=== PATIENT | female | born 1965 | race Caucasian/White ===

== ENCOUNTER → 2016-07-20 | Outpatient (REF) | payer OTHER ==
[~2016-07-20] MED LIST: COLA100C3 PO; MELO15TA4 PO; NEUR300C PO; PERCOCET PO; TRAM50TA2 PO; TYLE325T5 PO
[2016-07-20 15:32] LABS: BLOOD UREA NITROGEN 11 MG/DL (7-18); CREATININE FOR GFR 0.71 MG/DL (0.55-1.02); GLOMERULAR FILTRATION RATE > 60.0 (>58)
== END ==
LOC: M LABDRAW1 14:56
PROVIDERS: ATTEND Physical Medicine & Rehabilitation
DX: M48.07 Spinal stenosis, lumbosacral region (principal)

== ENCOUNTER → 2017-03-15 | Outpatient (REF) | payer OTHER ==
[2017-03-15 16:36] LABS: AMPHETAMINES URINE REFLEX NEGATIVE (NEGATIVE); BARBITURATES URINE REFLEX NEGATIVE (NEGATIVE); BENZODIAZEPINES URINE REFLEX NEGATIVE (NEGATIVE); CANNABINOIDS URINE REFLEX NEGATIVE (NEGATIVE); COCAINE METABOLITE URINE REFLE NEGATIVE (NEGATIVE); METHADONE URINE REFLEX NEGATIVE (NEGATIVE); OPIATES URINE REFLEX NEGATIVE (NEGATIVE); PHENCYCLIDINE URINE REFLEX NEGATIVE (NEGATIVE)
== END ==
LOC: M LAB REF 15:51
DX: M47.897 Other spondylosis, lumbosacral region (principal)

== ENCOUNTER → 2018-12-08 | Outpatient (REF) | payer OTHER ==
[~2018-12-08] MED LIST changes: -COLA100C3 PO; +COLA100C5 PO; +MELO15TA28 PO; -MELO15TA4 PO; +TIZA4TAB4; +TRAM50TA2
[2018-12-08 12:49] LABS: BASO % 0.4 % (0.0-1.0); EOS # 0.3 10^3/uL (0.0-0.5); EOS % 2.8 % (0.0-3.0); HEMATOCRIT 46.2 % (36.0-47.0); HEMOGLOBIN 14.8 g/dl (12.0-15.5); LYMPH # 2.8 10^3/uL (1.5-5.0); LYMPH % 29.3 % (24.0-44.0); MEAN CORPUSCULAR HEMOGLOBIN 31.1 pg (27.0-33.0); MEAN CORPUSCULAR VOLUME 97.1 fl (80.0-96.0); MONO # 0.7 10^3/uL (0.0-0.8); MONO % 7.8 % (0.0-5.0); NEUTROPHILS # 5.6 10^3/uL (1.5-8.5); NEUTROPHILS % 59.4 % (36.0-66.0); PLATELET COUNT, AUTOMATED 385 10^3/uL (150-450); RED BLOOD COUNT 4.76 10^6/uL (4.00-5.40); WHITE BLOOD COUNT 9.5 10^3/uL (4.0-10.0)
[2018-12-08 13:08] LABS: ALBUMIN 4.1 GM/DL (3.2-5.2); ALT/SGPT 61 U/L (12-78); BILIRUBIN,TOTAL 0.4 MG/DL (0.2-1.0); BLOOD UREA NITROGEN 14 MG/DL (7-18); CALCIUM LEVEL 9.6 MG/DL (8.5-10.1); CARBON DIOXIDE LEVEL 24 MEQ/L (21-32); CHLORIDE LEVEL 108 MEQ/L (98-107); CHOLESTEROL LEVEL 247 MG/DL (<200); CHOLESTEROL RISK RATIO 3.859 (<5); CREATININE FOR GFR 0.74 MG/DL (0.55-1.30); GLOMERULAR FILTRATION RATE > 60.0 (>51); GLUCOSE, FASTING 85 MG/DL (70-100); HDL CHOLESTEROL 64 MG/DL (>40); LDL CHOLESTEROL 143 MG/DL (<100); NON-HDL-C 183 MG/DL; POTASSIUM SERUM 4.8 MEQ/L (3.5-5.1); SODIUM LEVEL 140 MEQ/L (136-145); TOTAL PROTEIN 7.5 GM/DL (6.4-8.2); TRIGLYCERIDES LEVEL 201 MG/DL (<150)
== END ==
LOC: M SFHCADAM 08:29
PROVIDERS: ATTEND Family Medicine
DX: Z00.00 Encounter for general adult medical examination without abnormal findings (principal)

== ENCOUNTER 2018-12-26 11:50 | Day surgery (SDC) | payer OTHER ==
[~2018-12-26] VITALS: Ht 172.7 cm; Wt 76.7 kg
[~2018-12-26 11:50] MED LIST changes: +LR 1,000 ML IV ONE
[2018-12-26 12:33] LABS: HEMATOCRIT 46.4 % (36.0-47.0); HEMOGLOBIN 15.3 g/dl (12.0-15.5); MEAN CORPUSCULAR HEMOGLOBIN 31.1 pg (27.0-33.0); MEAN CORPUSCULAR VOLUME 94.3 fl (80.0-96.0); PLATELET COUNT, AUTOMATED 295 10^3/uL (150-450); RED BLOOD COUNT 4.92 10^6/uL (4.00-5.40); WHITE BLOOD COUNT 8.3 10^3/uL (4.0-10.0)
--- NOTE | 2018-12-26 13:11 | ECGEPIP ---
[facility] Test Date: 2018-12-26 Pat Name: YUDITH HEIN Department: Room: - Gender: Female Director Oracle Database: UYEN : [id number] Requested By: DAPHNE KAISER Order Number: [id number] Reading MD: Syl Ayers Measurements Intervals [place] Rate: 83 P: 56 NV: 135 QRS: 58 QRSD: 93 T: 55 QT: 376 QTc: 443 Interpretive Statements SINUS RHYTHM NO PRIOR NONSPECIFIC ST AMN Electronically Signed on 12-26-2018 13:10:49 EST by Syl Ayers
[2018-12-26] MEDS ORDERED: PROPOFOL 200 MG/20 ML VIAL As Ordered ONE (13:36)
[2018-12-26] MEDS ORDERED: MIDAZOLAM INJ 2 MG/2 ML VIAL (J2250) As Ordered ONE (13:36)
[2018-12-26] MEDS ORDERED: LIDOCAINE 2% INJ 100 MG/5 ML SDV (FOR ANES.) As Ordered ONE (13:36)
[2018-12-26] MEDS ORDERED: fentaNYL 100 MCG/2 ML INJECTION (J3010) As Ordered ONE (13:36)
[2018-12-26] MEDS ORDERED: dexameTHASONE 4 MG/ML 1ML VIAL (J1100) As Ordered ONE (13:36)
[2018-12-26] MEDS ORDERED: ONDANSETRON 4MG/2ML VIAL (J2405) As Ordered ONE (13:36)
[2018-12-26] MEDS ORDERED: KETOROLAC 60 MG/2 ML VIAL (J1885) As Ordered ONE (13:36)
[2018-12-26] MEDS ORDERED: SILVER NITRATE APPLICATOR As Ordered ONE (15:15)
[2018-12-26] MEDS ORDERED: LR 1,000 ML IV SCH (15:45)
[2018-12-26] MEDS ORDERED: fentaNYL 100 MCG/2 ML INJECTION (J3010) IV PRN (15:45)
[2018-12-26] MEDS ORDERED: ONDANSETRON 4MG/2ML VIAL (J2405) IV PRN (15:45)
[2018-12-26] MEDS ORDERED: PERCOCET 5MG/325MG TAB PO PRN ×2 (15:45→16:00)
--- NOTE | 2018-12-26 15:48 | RO ---
DATE OF PROCEDURE: 12/26/2018 PREOPERATIVE DIAGNOSIS: Post menopausal bleeding. POSTOPERATIVE DIAGNOSIS: Post menopausal bleeding. PROCEDURE PERFORMED: Hysteroscopy with dilation and curettage. SURGEON: Ngozi Deluca MD BENZENE WASHER: None. ANESTHESIA: General via laryngeal mask airway. ESTIMATED BLOOD LOSS: 5 mL. IV FLUIDS: 500 mL. URINE OUTPUT: Was not obtained. OPERATIVE FINDINGS: Thickened endometrial, bilateral ostia are not visualized. The uterus sounded to 9 cm. Excessive amounts of tissue obtained on curettage. SPECIMENS: Endometrial curettings. PREOPERATIVE ANTIBIOTICS: None. DESCRIPTION OF OPERATION: After informed consent was obtained and written consent reviewed, the patient brought the operating room where she was placed under general anesthesia. She was then placed lithotomy position and was prepped and draped in a normal sterile fashion. Time out in the operating room was then performed identifying the patient, procedure to be performed, as well as drug allergies. A bivalve speculum then placed revealing the cervix anterior lip, surface was grasped with a single-tooth tenaculum. Uterus was then sounded to 9 cm. The uterus then sequentially dilated using Patrick dilators. The hysteroscope was then advanced through the cervical os and the endometrial cavity was inspected showing excessive amounts endometrium extremely thick, bilateral ostias were not visualized. Hysteroscope was then removed. Curette was then advanced in the cervical os to the level of the fundus and the uterus was curetted in a 360 degree fashion and large amounts of tissue obtained. Specimen was then collected and sent to pathology. Single-tooth tenaculum then removed. Tenaculum sites were noted to be hemostatic. Speculum was then removed. The patient was then taken out of lithotomy position, was awakened anesthesia, taken recovery in stable condition.
[2018-12-26 16:30] VITALS: BP 147/78
[2018-12-26] MEDS ORDERED: KETOROLAC 30 MG/ML VIAL (J1885) IV SCH (21:00)
== END 2018-12-26 16:45 | disposition home or self-care (01) ==
LOC: M SDC 11:50
PROVIDERS: ATTEND Obstetrics & Gynecology
DX: C54.1 Malignant neoplasm of endometrium (principal); Z79.899 Other long term (current) drug therapy; F17.218 Nicotine dependence, cigarettes, with other nicotine-induced disorders
CPT/HCPCS: 36415; 58558; 81025; 85027; 86850; 86900; 86901; 88305; 93005; J1100; J1885; J2250; J2405; J3010

== ENCOUNTER → 2019-01-15 | Outpatient (CLI) | payer OTHER ==
[~2019-01-15] MED LIST changes: -LR 1,000 ML IV ONE
--- NOTE | 2019-01-15 10:23 | REP ---
BILATERAL MAMMOGRAM WITH 3D TOMOSYNTHESIS: No family history of breast cancer. [facility] lifetime risk of breast cancer 7.5%. Comparison mammogram 07/10/2002. MLO and CC views of the breast performed with 3D tomosynthesis. There is moderate fibroglandular tissue bilaterally. There is asymmetric increased density associated with tiny calcifications in the upper inner left breast. This is in the mid third of the left breast. I see no other evidence of mass or clustered microcalcifications. IMPRESSION: ACR 0 incomplete. There appears to be subtle asymmetric ill-defined fibroglandular density in the upper inner left breast associated with tiny calcifications at that location. Recommend spot compression magnification views to further evaluate. ACR 0 incomplete. This mammogram was interpreted with the aid of an FDA-approved computer-aided detection system. A. Negative x-ray reports should not delay biopsy if a dominant or clinically suspicious mass is present. B. Four to eight percent of cancers are not identified by x-ray. C. Adenosis and dense breasts may obscure an underlying neoplasm. The patient states she has not had a clinical breast exam in over a year. The patient letter being requested is M0. Electronically Signed by Vipin Mcgowan MD 01/15/2019 12:48 P
--- NOTE | 2019-01-15 10:31 | REP ---
Clinical: Endometrial malignancy. Technique: Transvaginal examination for better evaluation of the endometrium and adnexa with color Doppler evaluation of the ovaries. Findings: Anteverted uterus measures 8.9 x 4.7 x 6.4 cm and a 1 cm left intramural partially calcified fibroid is identified. The endometrial complex appears avascular and measures 26 mm thickness. Bilateral ovaries are normal in appearance and vascularity without evidence for torsion. Right ovary measures 2.4 x 1.7 x 2.0 cm ; R I = 0.57 . Left ovary measures 3.5 x 1.6 x 1.6 cm ; R I = 0.60 . No pelvic fluid or adnexal mass lesion . Impression: 1. Heterogeneous thickened endometrium. 2. 1 cm intramural fibroid. 3. Normal bilateral ovaries. 4. No free fluid. Electronically Signed by Gal Denson MD 01/15/2019 10:23 A
== END ==
LOC: M RAD 09:05
PROVIDERS: ATTEND Obstetrics & Gynecology
DX: C54.1 Malignant neoplasm of endometrium (principal); R92.2 Inconclusive mammogram; N95.0 Postmenopausal bleeding

== ENCOUNTER → 2019-04-03 | Outpatient (CLI) | payer OTHER ==
[2019-04-03 15:33] LABS: BASO % 0.4 % (0.0-1.0); EOS # 0.2 10^3/uL (0.0-0.5); HEMOGLOBIN 13.6 g/dl (12.0-15.5); LYMPH # 2.7 10^3/uL (1.5-5.0); LYMPH % 35.7 % (24.0-44.0); MEAN CORPUSCULAR HEMOGLOBIN 30.1 pg (27.0-33.0); MEAN CORPUSCULAR HGB CONC 33.2 g/dl (32.0-36.5); MEAN CORPUSCULAR VOLUME 90.7 fl (80.0-96.0); MONO # 0.6 10^3/uL (0.0-0.8); MONO % 7.2 % (0.0-5.0); NEUTROPHILS # 4.2 10^3/uL (1.5-8.5); NEUTROPHILS % 54.4 % (36.0-66.0); PLATELET COUNT, AUTOMATED 383 10^3/uL (150-450); RED BLOOD COUNT 4.52 10^6/uL (4.00-5.40); WHITE BLOOD COUNT 7.6 10^3/uL (4.0-10.0)
[2019-04-03 15:54] LABS: ALBUMIN 4.5 GM/DL (3.2-5.2); ALT/SGPT 50 U/L (12-78); BILIRUBIN,TOTAL 0.5 MG/DL (0.2-1.0); BLOOD UREA NITROGEN 17 MG/DL (7-18); CALCIUM LEVEL 9.3 MG/DL (8.5-10.1); CARBON DIOXIDE LEVEL 29 MEQ/L (21-32); CHLORIDE LEVEL 103 MEQ/L (98-107); CREATININE FOR GFR 0.93 MG/DL (0.55-1.30); GLOMERULAR FILTRATION RATE > 60.0 (>51); GLUCOSE, FASTING 87 MG/DL (70-100); SODIUM LEVEL 137 MEQ/L (136-145); TOTAL PROTEIN 8.1 GM/DL (6.4-8.2)
== END ==
LOC: M LAB 14:09
PROVIDERS: ATTEND Family Medicine
DX: Z01.818 Encounter for other preprocedural examination (principal)

== ENCOUNTER → 2019-06-13 | Outpatient (CLI) | payer OTHER ==
[~2019-06-13] MED LIST changes: +ACET-683 PO; +APPL300T4 PO; +MULTCAP PO; +SIMV20TA22 PO; -TIZA4TAB4; +TIZA4TAB4 PO; +ULTR50TA8 PO; +VITA100T59 PO; +[UNRECOGNIZED DRUG - REMARK] PO
== END ==
LOC: M LABSMTC 09:36
PROVIDERS: ATTEND Anesthesiology
DX: Z01.818 Encounter for other preprocedural examination (principal); Z11.59 Encounter for screening for other viral diseases

== ENCOUNTER 2019-06-16 06:27 | Day surgery (SDC) | payer OTHER ==
[~2019-06-16] VITALS: Ht 170.2 cm; Wt 82.6 kg
[~2019-06-16 06:27] MED LIST changes: +HEPARIN SOD (PORCINE) 5000UNITS/ML VIAL (J1644 PER 1000UNITS) SQ ONE; +LR 1,000 ML IV ONE; -ULTR50TA8 PO; +ceFAZolin SOD 2 GM in IV 1 EA IV ONE
[2019-06-16] MEDS ORDERED: fentaNYL 100 MCG/2 ML INJECTION (J3010) As Ordered ONE (06:49)
[2019-06-16] MEDS ORDERED: MIDAZOLAM INJ 2MG/2ML VIAL (J2250 PER 1MG) As Ordered ONE (06:49)
[2019-06-16] MEDS ORDERED: PHENYLephrine HCL 500 MCG/5 ML (100MCG/ML) SYRINGE (J2370) As Ordered ONE (06:50)
[2019-06-16] MEDS ORDERED: ePHEDrine SULFATE 25 MG/5 ML(5MG/ML) SYRINGE As Ordered ONE (06:50)
[2019-06-16] MEDS ORDERED: propofoL 200 MG/20 ML VIAL As Ordered ONE (06:50)
[2019-06-16] MEDS ORDERED: SUGAMMADEX SODIUM 500 MG/5 ML VIAL (BRIDION) As Ordered ONE (06:50)
[2019-06-16] MEDS ORDERED: LIDOCAINE 2% 100MG/5ML SDV (FOR ANES.) As Ordered ONE (06:50)
[2019-06-16] MEDS ORDERED: dexameTHASONE 4 MG/ML 1ML VIAL (J1100 PER 1MG) As Ordered ONE (06:50)
[2019-06-16] MEDS ORDERED: ROCURONIUM BROMIDE 50 MG/5 ML VIAL As Ordered ONE (06:50)
[2019-06-16] MEDS ORDERED: ONDANSETRON 4MG/2ML VIAL As Ordered ONE (06:50)
[2019-06-16] MEDS ORDERED: BUPIVACAINE HCL 0.25% 10ML VIAL As Ordered ONE (07:09)
[2019-06-16] MEDS ORDERED: LIDOCAINE 1% MDV 20ML VIAL As Ordered ONE ×2 (07:09→07:34)
[2019-06-16] MEDS ORDERED: ACETAMINOPHEN 1000MG 100ML IV BTL (OFIRMEV) (J0131 PER 10MG) As Ordered ONE (07:43)
--- NOTE | 2019-06-16 09:18 | REP ---
FOCUSED LEFT BREAST SONOGRAPHY: HISTORY: Sonographic guidance for wire localization. FINDINGS: Sonographic guidance is provided to Dr. Mondragon who performed an ultrasound-guided wire localization procedure. Electronically Signed by Paul Carrera MD 06/16/2019 12:02 P
[2019-06-16] MEDS ORDERED: ULTR50TA8 PO (09:19)
[2019-06-16] MEDS ORDERED: fentaNYL 100 MCG/2 ML INJECTION (J3010) IV PRN (09:30)
[2019-06-16] MEDS ORDERED: ONDANSETRON 4MG/2ML VIAL IV PRN (09:30)
[2019-06-16] MEDS ORDERED: METOCLOPRAMIDE INJ 10MG/2ML VIAL (J2765 PER 1) IV PRN (09:30)
[2019-06-16] MEDS ORDERED: LR 1,000 ML IV SCH (09:30)
[2019-06-16] MEDS ORDERED: KETOROLAC 30 MG/ML 1ML VIAL IV PRN (09:30)
[2019-06-16] MEDS: PERCOCET 5MG/325MG TAB PO PRN ×2 (09:33→10:03)
[2019-06-16] MEDS: MORPHINE 2 MG/ML 1ML VIAL (J2270) IV PRN ×2 (09:39→09:46)
[2019-06-16 10:30] VITALS: BP 129/74
--- NOTE | 2019-06-16 13:38 | REP ---
SPECIMEN RADIOGRAPHY, LEFT BREAST. HISTORY: Excisional biopsy left breast with intraoperative needle localization. COMPARISON MAMMOGRAPHY: March 04, 2019 FINDINGS: Specimen radiography demonstrates scattered microcalcifications adjacent to the localizer wire. The previously placed needle biopsy marker clip is seen within the specimen. Electronically Signed by Paul Carrera MD 06/16/2019 04:40 P
--- NOTE | 2019-06-16 17:56 | ROOPDOC ---
[facility] Report Of Operation Report of Operation DATE OF PROCEDURE: 06/16/19 PREPROCEDURE DIAGNOSES: Left intraductal papilloma POSTPROCEDURE DIAGNOSES: Left intraductal papilloma. PROCEDURE: Left breast excisional biopsy. SURGEON: Lauren Navarro INTERFACE ANALYST: ANESTHESIA: Gen. anesthetic was used. ESTIMATED BLOOD LOSS: Approximately 5 mL. COMPLICATIONS: None REMARKS: wire and the clip are present in the left breast excisional biopsy specimen. Some calcifications are also seen. DESCRIPTION OF PROCEDURE: INDICATIONS: Ms. Nieves is a 53-year-old woman who was found to have a left suspicious calcifications on screening mammogram. This was evaluated with Left breast stereotactic biopsy. The pathology came back as intraductal papilloma. Hydromark clip was placed. Left breast excisional biopsy was offered to the patient to remove the papilloma. She was medically cleared for surgery by her primary care doctor. Risks and possible complications of surgical procedure including bleeding, infection and injury to surrounding structures were explained to the patient and she wished to proceed. Consent was signed. My initials were placed on the operative site. Subcutaneous injection of 5000 units of heparin was done in Pr eop. DETAILS: Patient was taken to the operating room and placed on the operating room table. A sign in was called stating patients name, date of and the procedure to be done. Preoperative antibiotics were infused. Smooth induction of general an esthesia was done. Patients hands were extended on arm rests. Care was taken not to over extend the arms. Procedure was started with left breast intraop wire localization. Appropriate time out was done and patients name, date of , and the procedure to be done were confirmed. Left breast was cleaned by me. Intraoperative ultrasound was used again to confirm location of the Hydromark clip. Location of the clip was marked on the skin as well. 21 G Kopans Breast Lesion Localization Needle was used to place 25 cm wire through the lesion. The wire was placed through the clip and the end of the wire was passed a centimeter deep. The images were captured confirming adequate placement of the localizing wire. Closing Coordinator assisted with the wire placement. Next, patients left breast and axilla were prepped and draped in the usual fashion. Care was taken not to displace the wire. Appropriate time out was done again prior second part of the procedure. Patients name, date of , and the procedure to be done were confirmed. Next, local anesthetic using 1% lidocaine and 0.25 % Marcaine 50/50 mix was injected at the site of planned periareolar incision. The incision was made with the scalpel. Subcutaneous skin flaps were raised and the guide wire was carefully pulled into the wound. Dissection was carries along the wire until the previously marked on the skin area of target lesion location was encountered. At this point, wider excision of the tissue surrounding the wire was done. The Hydromark clip was identified in the tissue with intraoperative hockey stick ultrasound probe. The end of the wire was identified with palpation. The excisional biopsy specimen was carefully removed from the breast keeping its proper orientation and moved to the back table where margins were marked with the surgical inking kit following the standard colors recommendations. Specimen was then placed on the grid and placed in [employer] Specimen Imaging System. The image revealed the wire and the Hydromark in the specimen. The specimen was labeled with patients name and left excisional biopsy and sent to pathology. Next, the wound was irrigated thoroughly and adequate hemostasis was assured. Additional local anesthetic was injected into surrounding tissues. space was approximated with 3-0 Vicryl. The dermis was closed with 3-0 Monocryl and skin was closed with 4-0 Monocryl. Surgical glue was placed over the incision. Patient emerged from the anesthesia without any problems. Fluffs were placed over the operative site and patients chest was wrapped snuggly in the MATTHIEU wrap. Sponge and instrument counts were done and were correct. Patient tolerated procedure well and was taken to recovery unit in stable condition. RUSSELL WELCH DO June 16, 2019 17:56
== END 2019-06-16 11:00 | disposition home or self-care (01) ==
LOC: M SDC 06:27
PROVIDERS: ATTEND Surgery
DX: N60.22 Fibroadenosis of left breast (principal); D24.2 Benign neoplasm of left breast; K21.9 Gastro-esophageal reflux disease without esophagitis; Z79.899 Other long term (current) drug therapy
CPT/HCPCS: 19125; 36415; 76942; 86850; 86900; 86901; 88305; J0131; J0690; J1100; J1644; J2250; J2270; J2370; J2405; J3010

== ENCOUNTER → 2019-10-14 | Outpatient (REF) | payer OTHER ==
[~2019-10-14] MED LIST changes: -HEPARIN SOD (PORCINE) 5000UNITS/ML VIAL (J1644 PER 1000UNITS) SQ ONE; -LR 1,000 ML IV ONE; +ULTR50TA8 PO; -ceFAZolin SOD 2 GM in IV 1 EA IV ONE
== END ==
LOC: M SFHCWAGY 15:00
PROVIDERS: ATTEND Obstetrics & Gynecology
DX: Z12.4 Encounter for screening for malignant neoplasm of cervix (principal); N76.0 Acute vaginitis

== ENCOUNTER → 2020-07-05 | Outpatient (REF) | payer OTHER | LOC: M SFHCWAGY 13:08 | PROVIDERS: ATTEND Obstetrics & Gynecology | DX: Z12.4 Encounter for screening for malignant neoplasm of cervix (principal); Z85.42 Personal history of malignant neoplasm of other parts of uterus; R87.612 Low grade squamous intraepithelial lesion on cytologic smear of cervix (LGSIL) ==

== ENCOUNTER → 2020-07-18 | Outpatient (CLI) | payer OTHER ==
--- NOTE | 2020-07-18 09:20 | REPMRS ---
Patient History The patient states she had a clinical breast exam in June 2020. Patient is postmenopausal and has history of endometrial cancer at age 53. Family history of unknown cancer in maternal uncle. Radio exam Breast Specimen of the left breast, June 16, 2019. Benign mammogram-guided core biopsy of the left breast, March 04, 2019. No breast complaints today Patient signed the MRS sheet 1st covid vaccine 05/08/20-left arm-Moderna 2nd covid vaccine 06/08/20-left arm Priors on PACS Patient Identification Verified Digital Woman Screen Mammo: July 18, 2020 - Exam #: [id number] Bilateral CC and MLO view(s) were taken. Technologist: Cuca Peters, Technologist Prior study comparison: January 22, 2019, left breast digital mammo diagnostic unilateral, performed at [facility]. January 15, 2019, bilateral digital mammo screening bilat, performed at [facility]. FINDINGS: There are scattered fibroglandular densities. Screening. Digital screening (2D) mammography was performed bilaterally in the CC and MLO projections. Additionally, breast tomosynthesis (3D mammography) was performed bilaterally in the CC and MLO projections. Todays exam was compared to the prior exams. By history, the patient has no complaints of a palpable breast abnormality or other significant breast complaints. The breasts are unchanged in size and shape. There are no nish-soft tissue densities or spiculated masses. There is no internal architectural distortion. There are no suspicious nish-calcific clusters. Skin thickening or nipple retraction is not present. IMPRESSION: The Volpara volumetric breast density category is B, there are scattered areas of fibroglandular density. BI-RADS Category 2- Benign Findings. There is no evidence of malignant alteration of the breasts. Followup examination recommended in one year. The lifetime Tyrer-Cuzick score is 7.7 % This mammogram was read with the assistance of L[place],an FDA approved computer aided detection system for mammography. Negative x-ray reports should not delay surgical consultation if a dominant or clinically suspicious mass is present. Not all breast cancers can be identified by mammography. Therefore, we recommend that you continue to perform regular breast self-examination and physical examination and then promptly contact your physician of any concerns or changes. Adenosis and dense breasts may obscure an underlying neoplasm. Assessment: BI-RADS/ACR category 2 mammogram. Benign Findings. Recommendation Routine screening mammogram of both breasts in 1 year. Electronically Signed By: Quirino Kennedy DO 07/18/20 0991
== END ==
LOC: M WHC 08:01
PROVIDERS: ATTEND Obstetrics & Gynecology
DX: Z12.31 Encounter for screening mammogram for malignant neoplasm of breast (principal)

== ENCOUNTER → 2020-08-19 | Outpatient (REF) | payer OTHER | LOC: M SFHCWAGY 17:27 | PROVIDERS: ATTEND Obstetrics & Gynecology | DX: R87.612 Low grade squamous intraepithelial lesion on cytologic smear of cervix (LGSIL) (principal) ==

== ENCOUNTER → 2020-11-18 | Outpatient (REF) | payer OTHER | LOC: M SFHCADAM 16:59 | PROVIDERS: ATTEND Family Medicine | DX: J34.89 Other specified disorders of nose and nasal sinuses (principal) ==

== ENCOUNTER → 2021-10-25 | Outpatient (CLI) | payer OTHER ==
[~2021-10-25] MED LIST changes: +TIZA10TA PO; -TIZA4TAB4 PO
== END ==
LOC: M WHC 09:33
PROVIDERS: ATTEND Obstetrics & Gynecology
DX: Z12.31 Encounter for screening mammogram for malignant neoplasm of breast (principal)

== ENCOUNTER → 2022-04-07 | Outpatient (CLI) | payer OTHER | LOC: M RAD 14:14 | PROVIDERS: ATTEND Physician Assistant | DX: M51.36 Other intervertebral disc degeneration, lumbar region (principal); M51.25 Other intervertebral disc displacement, thoracolumbar region ==

== ENCOUNTER → 2022-04-30 | Outpatient (CLI) | payer OTHER ==
[2022-04-30 11:51] LABS: PLATELET COUNT, AUTOMATED 319 10^3/uL (150-450)
[2022-04-30 12:02] LABS: INR 0.8; PROTHROMBIN TIME 11.3 SECONDS (12.5-14.5)
[2022-04-30 12:03] LABS: PARTIAL THROMBOPLASTIN TIME 26.4 SECONDS (24.8-34.2)
[2022-04-30 12:30] LABS: COLLAGEN EPINEPHRINE 139 SECONDS (74-162)
== END ==
LOC: M LAB 10:46
PROVIDERS: ATTEND Physician Assistant
DX: Z01.818 Encounter for other preprocedural examination (principal)

== ENCOUNTER → 2022-06-28 | Outpatient (REF) | payer OTHER | LOC: M SFHCPLAZ 17:32 | PROVIDERS: ATTEND Physician Assistant Medical | DX: J02.9 Acute pharyngitis, unspecified (principal) ==

== ENCOUNTER → 2022-12-24 | Outpatient (REF) | payer OTHER ==
[2022-12-24 16:40] LABS: PLATELET COUNT, AUTOMATED 338 10^3/uL (150-450)
[2022-12-24 16:59] LABS: INR 1.01
== END ==
LOC: M LABDRWAD 16:13
PROVIDERS: ATTEND Physician Assistant
DX: Z01.818 Encounter for other preprocedural examination (principal)

== ENCOUNTER → 2023-02-19 | Outpatient (CLI) | payer OTHER | LOC: M WHC 13:29 | PROVIDERS: ATTEND Obstetrics & Gynecology | DX: Z12.31 Encounter for screening mammogram for malignant neoplasm of breast (principal) ==

== ENCOUNTER → 2023-03-06 | Outpatient (REF) | payer OTHER | LOC: M SFHCADAM 15:59 | PROVIDERS: ATTEND Family Medicine | DX: Z00.00 Encounter for general adult medical examination without abnormal findings (principal); R09.81 Nasal congestion ==

== ENCOUNTER → 2023-05-07 | Outpatient (CLI) | payer OTHER | LOC: M RAD 13:31 | PROVIDERS: ATTEND Family Medicine | DX: Z12.2 Encounter for screening for malignant neoplasm of respiratory organs (principal); R91.1 Solitary pulmonary nodule; J47.9 Bronchiectasis, uncomplicated ==

== ENCOUNTER → 2023-07-17 | Outpatient (REF) | payer OTHER ==
[~2023-07-17] MED LIST changes: +APAP325T4 PO; +FLON1SPR; +IBUP-1857 PO; +IMMUCAP2 PO; +LORA-1041 PO; +THERTAB52 PO; -TRAM50TA2
[2023-07-17 17:38] LABS: PLATELET COUNT, AUTOMATED 332 10^3/uL (150-450)
[2023-07-17 17:58] LABS: INR 0.92; PROTHROMBIN TIME 12.1 SECONDS (12.5-14.5)
== END ==
LOC: M LABDRWAD 17:05
PROVIDERS: ATTEND Physician Assistant
DX: Z01.818 Encounter for other preprocedural examination (principal)

== ENCOUNTER → 2023-07-19 | Outpatient (CLI) | payer OTHER | LOC: M LAB 11:25 | PROVIDERS: ATTEND Physician Assistant | DX: Z01.812 Encounter for preprocedural laboratory examination (principal) ==

== ENCOUNTER → 2023-12-21 | Outpatient (CLI) | payer OTHER | LOC: M RAD 10:25 | PROVIDERS: ATTEND Physician Assistant | DX: M51.16 Intervertebral disc disorders with radiculopathy, lumbar region (principal); M47.816 Spondylosis without myelopathy or radiculopathy, lumbar region; M47.817 Spondylosis without myelopathy or radiculopathy, lumbosacral region ==

== ENCOUNTER → 2024-02-03 | Outpatient (REF) | payer OTHER ==
[2024-02-03 17:25] LABS: INR 0.89; PARTIAL THROMBOPLASTIN TIME 26.9 SECONDS (24.8-34.2); PROTHROMBIN TIME 12.4 SECONDS (12.5-14.5)
== END ==
LOC: M LABDRWAD 17:06
PROVIDERS: ATTEND Physician Assistant
DX: Z01.818 Encounter for other preprocedural examination (principal)

== ENCOUNTER → 2024-04-28 | Outpatient (CLI) | payer OTHER | LOC: M WHC 13:17 | PROVIDERS: ATTEND Obstetrics & Gynecology | DX: Z12.31 Encounter for screening mammogram for malignant neoplasm of breast (principal) ==

== ENCOUNTER → 2024-08-31 | Outpatient (REF) | payer OTHER, MEDICAID | LOC: M SFHCADAM 16:09 | PROVIDERS: ATTEND Family Medicine | DX: Z12.11 Encounter for screening for malignant neoplasm of colon (principal) ==

== ENCOUNTER → 2024-10-15 | Outpatient (REF) | payer OTHER, MEDICAID ==
[2024-10-15 14:49] LABS: BASO # 0.0 10^3/uL (0.0-0.2); BASO % 0.5 % (0.0-1.0); EOS # 0.4 10^3/uL (0.0-0.5); EOS % 5.2 % (0.0-3.0); LYMPH # 2.9 10^3/uL (1.5-5.0); LYMPH % 39.4 % (24.0-44.0); MONO # 0.6 10^3/uL (0.0-0.8); MONO % 8.0 % (2.0-8.0); NEUTROPHILS # 3.4 10^3/uL (1.5-8.5); NEUTROPHILS % 46.5 % (36.0-66.0); PLATELET COUNT, AUTOMATED 320 10^3/uL (150-450)
[2024-10-15 14:52] LABS: ALT/SGPT 36.0 U/L (7.0-40); AST/SGOT 28.0 U/L (<34); CALCIUM LEVEL 9.8 MG/DL (8.5-10.1); CARBON DIOXIDE LEVEL 28.0 MMOL/L (20-31); CHLORIDE LEVEL 107.0 MMOL/L (98-107); CHOLESTEROL LEVEL 198.0 MG/DL (<200); CHOLESTEROL RISK RATIO 2.11 (<5); CREATININE FOR GFR 0.81 MG/DL (0.55-1.30); FREE T4 1.19 NG/DL (0.89-1.76); GLOMERULAR FILTRATION RATE 84.6 (>51); LDL CHOLESTEROL 88.6 MG/DL (<100); NON-HDL-C 104.4 MG/DL; POTASSIUM SERUM 4.8 MMOL/L (3.5-5.1); SODIUM LEVEL 144.0 MMOL/L (136-145); TRIGLYCERIDES LEVEL 79.0 MG/DL (<150)
== END ==
LOC: M SFHCADAM 09:21
PROVIDERS: ATTEND Family Medicine
DX: Z00.00 Encounter for general adult medical examination without abnormal findings (principal)

== ENCOUNTER → 2024-10-16 | Outpatient (REF) | payer OTHER, MEDICAID ==
[2024-10-16 16:52] LABS: PLATELET COUNT, AUTOMATED 294 10^3/uL (150-450)
[2024-10-16 17:13] LABS: INR 0.9
== END ==
LOC: M LABDRWAD 16:47
PROVIDERS: ATTEND Physician Assistant
DX: Z01.818 Encounter for other preprocedural examination (principal)